=== PATIENT | male | born 1940 | race Caucasian/White ===

== ENCOUNTER 2019-01-15 10:19 | Observation (INO) | payer OTHER ==
[~2019-01-15] VITALS: Ht 154.9 cm; Wt 63.7 kg
[~2019-01-15 10:19] MED LIST: AMLO-147 PO; ESOM40CA PO; GABA300C16 PO; GLIM4TAB PO; KETO15CR TOP; LORA-444 PO; METF500T24 PO; VALA1000 PO; VALS320T2 PO; ZOLP10TA5 PO; [UNRECOGNIZED DRUG - CODE] IM
[2019-01-15] MEDS ORDERED: SOD CHLORIDE 0.9% 500 ML IV STA (10:32)
[2019-01-15] MEDS ORDERED: MELO7.5T38 PO (12:28)
[2019-01-15] MEDS ORDERED: SODI1TAB2 PO (12:28)
[2019-01-15] MEDS ORDERED: CARV12.598 PO (12:28)
[2019-01-15] MEDS ORDERED: METF-480 PO (12:28)
[2019-01-15] MEDS ORDERED: ZOLP12.54 PO (12:28)
--- NOTE | 2019-01-15 13:46 | ERD ---
ER Documentation Chief Complaint Chief Complaint DIZZINESS AND GEN WEAKNESS AND LOW NA PER PT. NAUSEA FOR 4 DAYS. HPI 78-year-old male presents to the emergency department complaining of generalized weakness and dizziness. Patient states for the last 4 days has had a generalized sense of weakness and inability to care for himself. His , and arrived in the emergency department with him also states he has been too weak to take care of himself. He has been nauseous for the last 4 days and reports urinary frequency. He is concerned that because he has been urinating so much that his sodium level is dropping. He reports no focal weakness or numbness. He reports no headache. He reports no fevers or chills. ROS All systems reviewed and are negative except as per history of present illness. Medications Home Meds Reported Medications Meloxicam* (Meloxicam*) 7.5 Mg Tablet, 7.5 MG PO BID, #30 TAB 01/15/19 Sodium Chloride* (Sodium Chloride*) 1 Gm Tablet, 1 GM PO DAILY, TAB 01/15/19 Carvedilol* (Coreg*) 12.5 Mg Tablet, 12.5 MG PO BID, #60 TAB 01/15/19 Zolpidem Tartrate* (Zolpidem Tartrate* ER) 12.5 Mg Tab.mphase, 12.5 MG PO HS PRN for INSOMNIA, #30 TAB.SA 01/15/19 Metformin* (Glucophage*) 850 Mg Tablet, 850 MG PO WITH BREAKFAST DINNE, #30 TAB 01/15/19 Lorazepam* (Ativan*) 2 Mg Tablet, 2 MG PO Q8 PRN for ANXIETY, TAB 02/04/15 Gabapentin* (Gabapentin*) 300 Mg Capsule, 300 MG PO BID, CAP 04/13/14 Esomeprazole Mag Trihydrate (Nexium) 40 Mg Capsule.dr, 40 MG PO BID, CAP 04/13/14 Amlodipine Besylate* (Amlodipine Besylate*) 10 Mg Tablet, 10 MG PO DAILY 11/18/13 Discontinued Reported Medications Ketoconazole* (Ketoconazole*) 60 Gm Cream.gm., 1 APPLIC TOP BID, EA 02/04/15 Metformin Hcl* (Metformin Hcl*) 500 Mg Tablet, 500 MG PO BID WITH MEALS, TAB 02/04/15 Valacyclovir Hcl* (Valacyclovir Hcl*) 1,000 Mg Tablet, 1000 MG PO BID, TAB 02/04/15 Zolpidem Tartrate* (Zolpidem Tartrate*) 10 Mg Tablet, 10 MG PO HS PRN for INSOMNIA, TAB 07/24/14 Glimepiride* (Glimepiride*) 4 Mg Tablet, 4 MG PO BID WITH MEALS, TAB 07/24/14 Testosterone Cypionate* (Testosterone Cypionate*) 200 Mg/Ml Vial, 200 MG IM Q14D, VIAL 07/24/14 Valsartan* (Diovan*) 320 Mg Tablet, 320 MG PO DAILY 11/18/13 Allergies Allergies: Coded Allergies: No Known Allergy (Verified , 01/15/19) PMhx/Soc History of Surgery: Yes (hernia) Anesthesia Reaction: No Hx Neurological Disorder: No Hx Respiratory Disorders: No Hx Cardiac Disorders: Yes (HTN) Hx Psychiatric Problems: No Hx Miscellaneous Medical Probl: Yes (DM, GALSTONES ) Hx Alcohol Use: No Hx Substance Use: No Hx Tobacco Use: No Smoking Status: Never smoker FmHx Noncontributory for chief complaint Physical Exam Vitals Vital Signs Date Temp Pulse Resp B/P (MAP) Pulse Ox O2 O2 Flow FiO2 Time Delivery Rate 01/15/19 98.4 61 20 137/65 98 Room Air 12:09 (89) 01/15/19 59 16 133/69 97 Room Air 11:55 (90) 01/15/19 98.4 72 18 166/79 99 10:24 (108) Physical Exam GENERAL: Frail, elderly, weak appearing male in no acute distress HEENT: Pupils equal, round, and reactive to light. EOMI. There is no scleral icterus. NECK: C-spine is soft and supple, there is no meningismus. There is no cervical lymphadenopathy. LUNGS: Clear to auscultation bilaterally. There are no rales, wheezes or rhonchi. HEART: Regular rate and rhythm, no murmurs, clicks, rubs or gallops. ABDOMEN: Soft, non-tender, non-distended. There are bowel sounds in all four quadrants. No rebound or guarding. EXTREMITIES: There is no peripheral cyanosis or edema. No focal swelling or erythema. NEURO: The patient moves all four extremities with 5/5 strength. Cranial nerves II - XII are intact. Unsteady gait. Alert and oriented with generalized weakness noted SKIN: There is no apparent rash or petechiae. HEME/LYMPHATIC: There is no evidence of excessive bruising or lymphedema. PSYCHIATRIC: The patient does not appear anxious or depressed. Result Diagram: 01/15/19 1041 01/15/19 1041 Results 24 hrs Laboratory Tests Test 01/15/19 10:41 01/15/19 11:30 White Blood Count 7.0 10^3/ul Red Blood Count 4.17 10^6/ul Hemoglobin 12.4 g/dl Hematocrit 35.9 % Mean Corpuscular Volume 86.1 fl Mean Corpuscular Hemoglobin 29.7 pg Mean Corpuscular Hemoglobin Concent 34.5 g/dl Red Cell Distribution Width 13.2 % Platelet Count 160 10^3/UL Mean Platelet Volume 9.6 fl Immature Granulocytes % 0.900 % Neutrophils % 65.1 % Lymphocytes % 19.9 % Monocytes % 12.2 % Eosinophils % 1.2 % Basophils % 0.7 % Nucleated Red Blood Cells % 0.0 /100WBC Immature Granulocytes # 0.060 10^3/ul Neutrophils # 4.5 10^3/ul Lymphocytes # 1.4 10^3/ul Monocytes # 0.9 10^3/ul Eosinophils # 0.1 10^3/ul Basophils # 0.1 10^3/ul Nucleated Red Blood Cells # 0.0 10^3/ul Sodium Level 132 mmol/L Potassium Level 4.1 mmol/L Chloride Level 95 mmol/L Carbon Dioxide Level 24 mmol/L Anion Gap 13 Blood Urea Nitrogen 18 mg/dl Creatinine 0.78 mg/dl Est Glomerular Filtrat Rate mL/min mL/min Glucose Level 237 mg/dl Calcium Level 9.2 mg/dl Total Bilirubin 0.4 mg/dl Direct Bilirubin 0.00 mg/dl Indirect Bilirubin 0.4 mg/dl Aspartate Amino Transf (AST/SGOT) 21 IU/L Alanine Aminotransferase (ALT/SGPT) 24 IU/L Alkaline Phosphatase 105 IU/L Total Protein 7.5 g/dl Albumin 4.3 g/dl Globulin 3.20 g/dl Albumin/Globulin Ratio 1.34 Lipase 120 U/L Urine Color YELLOW Urine Clarity CLEAR Urine pH 6.0 Urine Specific [place] 1.024 Urine Ketones NEGATIVE mg/dL Urine Nitrite NEGATIVE mg/dL Urine Bilirubin NEGATIVE mg/dL Urine Urobilinogen NEGATIVE mg/dL Urine Leukocyte Esterase NEGATIVE Sammy/ul Urine Hemoglobin NEGATIVE mg/dL Urine Glucose 1+ mg/dL Urine Total Protein NEGATIVE mg/dl Current Medications Medications Dose Sig/Dameon Start Time Status Last (Trade) Ordered Route PRN Stop Time Admin Dose Reason Admin Sodium 500 ml @ Q1H STAT 01/15/19 DC 01/15/19 Chloride 500 mls/hr IV 10:32 01/15/19 11:10 11:31 Procedures/MDM Patient was taken to a room, seen and evaluated. Comfort measures were initiated. Diagnostic tests were ordered and reviewed. 3 LEAD RHYTHM STRIP: Normal sinus rhythm without ectopy EK lead EKG reviewed by myself: Normal Sinus Rhythm Left axis deviation Nonspecific ST and T wave changes without ST elevation Impression: Nonspecific EKG RADIOLOGY: Reviewed with the radiologist CONSULTATION: Hospitalist was notified for admission REEVALUATION: 1345: Diagnostic tests were appreciated and discussed with the patient and arrangements were made for admission to the hospital. MEDICAL DECISION MAKIN-year-old male presents with a generalized weakness of uncertain etiology. Differential diagnosis entertained was broad and potential high acuity but focused on concerns regarding possible infection, electrolyte concerns. At this time, patient does not show evidence of significant infection including no evidence of urinary tract infection or pneum onia. His lab work is otherwise unremarkable except for a mild hyponatremia. I am more concerned about his medication list as he has multiple high risk medications that I believe are likely causing the weakness. As the patient is unable to care for himself at this time, he will be admitted to the hospital for further observation and monitoring. Departure Diagnosis: Primary Impression: Weakness Additional Impression: Adverse drug reaction Condition: CRUZ Iniguez Jan 15, 2019 13:46
[2019-01-15] MEDS ORDERED: ONDANSETRON 4 MG INJ IV PRN (14:00)
[2019-01-15] MEDS ORDERED: ACETAMINOPHEN 325 MG TAB PO PRN ×2 (14:00→16:00)
[2019-01-15 15:37] VITALS: BP 186/80; PULSE 70; RESP 18
[2019-01-15 15:51] VITALS: Ht 154.9 cm; Wt 63.7 kg
[2019-01-15 16:00] VITALS: PULSE 74
[2019-01-15] MEDS ORDERED: GLUCOSE GEL 15 GRAM TUBE BUCCAL PRN (16:00)
[2019-01-15] MEDS ORDERED: MAGNESIUM HYDROXIDE 30ML CUP PO PRN (16:00)
[2019-01-15] MEDS ORDERED: DEXTROSE 50% 50 ML SYRINGE IV PRN ×2 (16:00)
[2019-01-15] MEDS ORDERED: GLUCOSE GEL 15 GRAM TUBE PO PRN ×2 (16:00)
[2019-01-15] MEDS ORDERED: GLUCAGON 1 MG INJ IM PRN (16:00)
[2019-01-15] MEDS ORDERED: ACETAMINOPHEN 650 MG SUPP PR PRN (16:00)
[2019-01-15] MEDS ORDERED: NACL 0.9% 3 ML SYG IV SCH (16:00)
--- NOTE | 2019-01-15 16:04 | HP ---
Date/Time of Note Date/Time of Note DATE: 01/15/19 TIME: 15:53 Assessment/Plan VTE Prophylaxis SCD contraindicated: low risk/ambulating Pharmacological prophylaxis: heparin Lines/Catheters IV Catheter Type (from Nrs): Saline Lock Assessment/Plan Hospital Course assessment and plan 1. Dysuria and urinary frequency. Urinalysis not very suggestive of UTI. Will check urine culture. Hold off abx for now. 2. Reported increased dizziness and weakness. Etiology unknown. Patient reportedly takes Ambien and Ativan at home. Will hold off these medications for now. We will get physical therapist evaluation. 3. Hypertension. Will cover with antihypertensives. Will adjust as needed. 4. Diabetes. Follow-up on A1c. Start insulin regimen. 5. History of gastritis. Continue on Protonix. 6. History of anxiety. Hold off benzodiazepines for now for reported weakness and dizziness. Will monitor. Discussed plan of care with Dr. Lemon Result Diagram: 01/15/19 1041 01/15/19 1041 Results 24hrs Laboratory Tests Test 01/15/19 10:41 01/15/19 11:30 01/15/19 14:54 White Blood Count 7.0 Red Blood Count 4.17 #L Hemoglobin 12.4 L Hematocrit 35.9 #L Mean Corpuscular Volume 86.1 Mean Corpuscular Hemoglobin 29.7 Mean Corpuscular Hemoglobin Concent 34.5 Red Cell Distribution Width 13.2 # Platelet Count 160 Mean Platelet Volume 9.6 Immature Granulocytes % 0.900 H Neutrophils % 65.1 Lymphocytes % 19.9 Monocytes % 12.2 H Eosinophils % 1.2 Basophils % 0.7 Nucleated Red Blood Cells % 0.0 Immature Granulocytes # 0.060 H Neutrophils # 4.5 Lymphocytes # 1.4 Monocytes # 0.9 Eosinophils # 0.1 Basophils # 0.1 Nucleated Red Blood Cells # 0.0 Sodium Level 132 L Potassium Level 4.1 Chloride Level 95 L Carbon Dioxide Level 24 Anion Gap 13 Blood Urea Nitrogen 18 Creatinine 0.78 Est Glomerular Filtrat Rate mL/min Glucose Level 237 H Hemoglobin A1c 6.1 H Calcium Level 9.2 Total Bilirubin 0.4 Direct Bilirubin 0.00 Indirect Bilirubin 0.4 Aspartate Amino Transf (AST/SGOT) 21 Alanine Aminotransferase (ALT/SGPT) 24 Alkaline Phosphatase 105 Total Protein 7.5 Albumin 4.3 Globulin 3.20 Albumin/Globulin Ratio 1.34 Lipase 120 Urine Color YELLOW Urine Clarity CLEAR Urine pH 6.0 Urine Specific [place] 1.024 Urine Ketones NEGATIVE Urine Nitrite NEGATIVE Urine Bilirubin NEGATIVE Urine Urobilinogen NEGATIVE Urine Leukocyte Esterase NEGATIVE Urine Hemoglobin NEGATIVE Urine Glucose 1+ H Urine Total Protein NEGATIVE Bedside Glucose 127 HPI/ROS Admit Date/Time Admit Date/Time Jan 15, 2019 at 13:50 Hx of Present Illness This is a 78-year-old male with history of hypertension, diabetes, gastritis, anxiety, hernia repair, who came to [facility] due to reports of increased urinary frequency. During the interview patient reported that he had been having increased urinary frequency with subjective fevers at home as well as burning with urination. He reports having some dizziness with it. He did come to the hospital due to the aformentiond issues. No leukocytosis noted. No fever noted. Did have a high blood pressure during interview seen as high as 186/80. Urinalysis was also not clearly suggestive of urinary tract infection. Chest x-ray was also negative for any acute cardiopulmonary process. Patient denies any chest pain. He reports having increased frequency with urination. He does report some weakness. We will evaluate him for the aformentiond issues. ROS 12 point review of systems obtained entirely negative except that mentioned in the history of present illness PMH/Family/Social Past Medical History Medical/surgical history 1. Anxiety 2. Gastritis 3. diabetes 4. Hypertension 5. Hernia repair 6. reported testicular surgery (patient unable to provide details on type/reason for surgery) Medications Current Medications Amlodipine Besylate (Norvasc) 10 mg DAILY PO ; Start 01/16/19 at 09:00 Carvedilol (Coreg) 12.5 mg BID PO ; Start 01/15/19 at 21:00 Gabapentin (Neurontin) 300 mg BID PO ; Start 01/15/19 at 21:00 Meloxicam (Mobic) 7.5 mg BID PO ; Start 01/15/19 at 21:00 Sodium Chloride (Nacl) 1 gm DAILY PO ; Start 01/16/19 at 09:00 Miscellaneous Information (* Miscellaneous Pharmacy Order) Discontinue current oral sulfonylur... ONCE ONCE XX ; Start 01/15/19 at 16:00; Stop 01/15/19 at 16:01 Diagnostic Test (Pha) (Accu-Chek) 1 ea 02 XX ; Start 01/16/19 at 02:00 Miscellaneous Information (* Miscellaneous Pharmacy Order) HYPOGLYCEMIA PROTOCOL w... ONCE ONCE XX ; Start 01/15/19 at 16:00; Stop 01/15/19 at 16:01 Insulin Aspart (Novolog Insulin Pen) NOVOLOG *MILD* ALGORITHM WITH MEALS BEDTIME SC ; Start 01/15/19 at 18:00 Miscellaneous Information (* Miscellaneous Pharmacy Order) Discontinue all previ... ONCE ONCE XX ; Start 01/15/19 at 16:00; Stop 01/15/19 at 16:01 Insulin Glargine (Lantus) 11 units DAILY@2000 SC ; Start 01/15/19 at 20:00 Pantoprazole (Protonix Tab) 40 mg DAILY@06 PO ; Start 01/16/19 at 06:00 IV Flush (NS 3 ml) 3 ml PER PROTOCOL IV ; Start 01/15/19 at 16:00 Ondansetron HCl (Zofran Inj) 4 mg Q6H PRN IV NAUSEA/VOMITING; Start 01/15/19 at 16:00 Acetaminophen (Tylenol Tab) 650 mg Q6H PRN PO .PAIN 1-3 OR TEMP; Start 01/15/19 at 16:00 Acetaminophen (Tylenol Supp) 650 mg Q6H PRN [place] .PAIN 1-3 OR TEMP; Start 01/15/19 at 16:00 Magnesium Hydroxide (Milk Of Mag) 30 ml DAILY PRN PO .CONSTIPATION; Start 01/15/19 at 16:00 Miscellaneous Information 1 ea NOTE XX ; Start 01/15/19 at 16:00 Glucose (Glutose) 15 gm Q15M PRN PO DECREASED GLUCOSE; Start 01/15/19 at 16:00 Glucose (Glutose) 22.5 gm Q15M PRN PO DECREASED GLUCOSE; Start 01/15/19 at 16:00 Dextrose (D50w Syringe) 25 ml Q15M PRN IV DECREASED GLUCOSE; Start 01/15/19 at 16:00 Dextrose (D50w Syringe) 50 ml Q15M PRN IV DECREASED GLUCOSE; Start 01/15/19 at 16:00 Glucagon (Glucagen) 1 mg Q15M PRN IM DECREASED GLUCOSE; Start 01/15/19 at 16:00 Glucose (Glutose) 15 gm Q15M PRN BUCCAL DECREASED GLUCOSE; Start 01/15/19 at 16:00 Coded Allergies: No Known Allergy (Verified , 01/15/19) Family History Significant Family History: no pertinent family hx Social History Alcohol Use: none Smoking Status: Never smoker Drug Use: none Exam/Review of Systems Vital Signs Vitals Vital Signs Date Temp Pulse Resp B/P (MAP) Pulse Ox O2 O2 Flow FiO2 Time Delivery Rate 01/15/19 98.0 70 18 186/80 98 Room Air 15:37 (115) Exam Constitutional: alert, oriented Psych: no complaints Head: normocephalic Neck: supple, non-tender Respiratory: clear to auscultation Cardiovascular: regular rate and rhythm Gastrointestinal: soft, non-tender Neurological: SOFTBALL UMPIRE II-XII intact, nl mental status, nl speech REGIDORANTONIO NP Jan 15, 2019 16:03
[2019-01-15 16:29] VITALS: BP 172/79; PULSE 68
[2019-01-15 16:32] VITALS: BP 158/70; PULSE 73
[2019-01-15 16:34] VITALS: BP 131/60; PULSE 71
[2019-01-15] MEDS: ONDANSETRON 4 MG INJ IV PRN (16:51)
[2019-01-15] MEDS: INSULIN ASPART [NOVOLOG] 3 ML PEN SC SCH ×2 (17:19→20:41)
[2019-01-15 20:00] VITALS: BP 148/66; PULSE 59; PULSE 61; RESP 18
[2019-01-15] MEDS: GABAPENTIN 300 MG CAP PO SCH (20:39)
[2019-01-15] MEDS: INSULIN GLARGINE [LANTus] (100 UNITS/ML) SYG SC SCH (20:42)
[2019-01-15] MEDS: MELOXICAM 7.5 MG TAB PO SCH (20:45)
[2019-01-15] MEDS ORDERED: NON-FORMULARY/PATIENT OWN MED (Esomeprazole Mag Trihydrate (Nexium) 40 MG) PO SCH (21:00)
[2019-01-16] VITALS (12 sets, daily range): BP systolic 99–185; BP diastolic 54–84; PULSE 61–88; RESP 18–19
[2019-01-16] MEDS: ACCU-CHEK XX SCH (02:00)
[2019-01-16] MEDS: PANTOPRAZOLE (EC) 40 MG TAB PO SCH (05:02)
[2019-01-16] MEDS: hydrALAzine 20 MG INJ IV PRN ×2 (05:03→10:19)
[2019-01-16] MEDS: ONDANSETRON 4 MG INJ IV PRN (07:48)
[2019-01-16] MEDS: INSULIN ASPART [NOVOLOG] 3 ML PEN SC SCH ×4 (07:52→20:47)
[2019-01-16] MEDS: AMLODIPINE 10 MG TAB PO SCH (08:23)
[2019-01-16] MEDS: GABAPENTIN 300 MG CAP PO SCH ×2 (08:23→20:43)
[2019-01-16] MEDS: MELOXICAM 7.5 MG TAB PO SCH ×2 (08:23→20:39)
[2019-01-16] MEDS: SODIUM CHLORIDE 1 GM TAB PO SCH (08:24)
[2019-01-16] MEDS ORDERED: LORAZEPAM 2 MG INJ IV ONE (12:30)
[2019-01-16] MEDS ORDERED: LOSARTAN 25 MG TAB PO SCH (13:00)
--- NOTE | 2019-01-16 13:16 | PN ---
Date/Time of Note Date/Time of Note DATE: 01/16/19 TIME: 13:06 Assessment/Plan VTE Prophylaxis Risk score (from Ns)>0 risk: 3 SCD applied (from Ns): Yes Pharmacological prophylaxis: heparin Lines/Catheters IV Catheter Type (from Nrs): Saline Lock Urinary Cath still in place: No Assessment/Plan Hospital Course assessment and plan 1. Dysuria and urinary frequency. Urinalysis not very suggestive of UTI. - Will check urine culture. - Hold off abx for now. 2. Reported increased dizziness and weakness. - Etiology unknown. Patient reportedly takes Ambien and Ativan at home. - Will hold off these medications for now. - Awaiting physical therapist evaluation. 3. Hypertension. - continue antihypertensives 4. Diabetes. - continue insulin regimen. 5. History of gastritis. - Continue on Protonix. 6. History of anxiety. DISPO/PLAN: Await PT eval. reports testicular pain. We will follow-up on ultrasound. DC within the next 24 to 48 hours pending clinical course and if medically stable Discussed plan of care with Dr. Lemon Result Diagram: 01/16/19 0544 01/16/19 0544 Results 24hrs Laboratory Tests Test 01/15/19 14:54 01/15/19 17:18 01/15/19 20:36 01/16/19 05:44 Bedside Glucose 127 131 167 White Blood Count 7.7 Red Blood Count 4.38 L Hemoglobin 13.0 L Hematocrit 37.5 L Mean Corpuscular Volume 85.6 Mean Corpuscular 29.7 Hemoglobin Mean Corpuscular 34.7 Hemoglobin Concent Red Cell Distribution 13.0 Width Platelet Count 160 Mean Platelet Volume 9.5 Immature Granulocytes % 1.000 H Neutrophils % 62.0 Lymphocytes % 23.7 Monocytes % 10.2 Eosinophils % 2.3 Basophils % 0.8 Nucleated Red Blood 0.0 Cells % Immature Granulocytes # 0.080 H Neutrophils # 4.8 Lymphocytes # 1.8 Monocytes # 0.8 Eosinophils # 0.2 Basophils # 0.1 Nucleated Red Blood 0.0 Cells # Sodium Level 131 L Potassium Level 3.8 Chloride Level 94 L Carbon Dioxide Level 27 Anion Gap 10 Blood Urea Nitrogen 15 Creatinine 0.71 Est Glomerular Filtrat Rate mL/min Glucose Level 152 Calcium Level 9.6 Phosphorus Level 4.7 Magnesium Level 1.7 Total Bilirubin 0.5 Direct Bilirubin 0.00 Indirect Bilirubin 0.5 Aspartate Amino 19 Transf (AST/SGOT) Alanine 26 Aminotransferase (ALT/SG PT) Alkaline Phosphatase 103 Total Protein 7.3 Albumin 4.2 Globulin 3.10 Albumin/Globulin Ratio 1.35 Triglycerides Level 245 H Cholesterol Level 156 LDL Cholesterol, 72 Calculated HDL Cholesterol 35 Cholesterol/HDL Ratio 4.4 Thyroid Stimulating 2.870 Hormone (TSH) Free Thyroxine Index 2.82 Thyroxine (T4) 7.1 Triiodothyronine (T3) 39.7 Uptake Test 01/16/19 07:45 01/16/19 11:49 Bedside Glucose 170 193 Subjective 24 Hr Interval Summary Free Text/Dictation no s/s of distress. family at bedside Exam/Review of Systems Exam Vitals Vital Signs Date Temp Pulse Resp B/P (MAP) Pulse Ox O2 O2 Flow FiO2 Time Delivery Rate 01/16/19 88 12:02 01/16/19 98.4 18 172/78 96 11:29 (109) 01/16/19 Room Air 06:00 Intake and Output 01/15/19 01/15/19 01/16/19 1515:00 23:00 07:00 IntakeIntake Total 240 ml 600 ml OutputOutput Total 480 ml 800 ml BalanceBalance -240 ml -200 ml Exam Constitutional: alert, oriented Psych: no complaints Head: normocephalic Neck: supple, non-tender Respiratory: clear to auscultation Cardiovascular: regular rate and rhythm Gastrointestinal: soft, non-tender Neurological: BRICKLAYER APPRENTICE II-XII intact, nl mental status, nl speech Results Results 24hrs Laboratory Tests Test 01/15/19 14:54 01/15/19 17:18 01/15/19 20:36 01/16/19 05:44 Bedside Glucose 127 131 167 White Blood Count 7.7 Red Blood Count 4.38 L Hemoglobin 13.0 L Hematocrit 37.5 L Mean Corpuscular Volume 85.6 Mean Corpuscular 29.7 Hemoglobin Mean Corpuscular 34.7 Hemoglobin Concent Red Cell Distribution 13.0 Width Platelet Count 160 Mean Platelet Volume 9.5 Immature Granulocytes % 1.000 H Neutrophils % 62.0 Lymphocytes % 23.7 Monocytes % 10.2 Eosinophils % 2.3 Basophils % 0.8 Nucleated Red Blood 0.0 Cells % Immature Granulocytes # 0.080 H Neutrophils # 4.8 Lymphocytes # 1.8 Monocytes # 0.8 Eosinophils # 0.2 Basophils # 0.1 Nucleated Red Blood 0.0 Cells # Sodium Level 131 L Potassium Level 3.8 Chloride Level 94 L Carbon Dioxide Level 27 Anion Gap 10 Blood Urea Nitrogen 15 Creatinine 0.71 Est Glomerular Filtrat Rate mL/min Glucose Level 152 Calcium Level 9.6 Phosphorus Level 4.7 Magnesium Level 1.7 Total Bilirubin 0.5 Direct Bilirubin 0.00 Indirect Bilirubin 0.5 Aspartate Amino 19 Transf (AST/SGOT) Alanine 26 Aminotransferase (ALT/SG PT) Alkaline Phosphatase 103 Total Protein 7.3 Albumin 4.2 Globulin 3.10 Albumin/Globulin Ratio 1.35 Triglycerides Level 245 H Cholesterol Level 156 LDL Cholesterol, 72 Calculated HDL Cholesterol 35 Cholesterol/HDL Ratio 4.4 Thyroid Stimulating 2.870 Hormone (TSH) Free Thyroxine Index 2.82 Thyroxine (T4) 7.1 Triiodothyronine (T3) 39.7 Uptake Test 01/16/19 07:45 01/16/19 11:49 Bedside Glucose 170 193 Medications Medication Current Medications Amlodipine Besylate (Norvasc) 10 mg DAILY PO Last administered on 01/16/19 08:23; Admin Dose 10 MG; Start 01/16/19 at 09:00 Carvedilol (Coreg) 12.5 mg BID PO Last administered on 01/16/19 08:23; Admin Dose 12.5 MG; Start 01/15/19 at 21:00 Gabapentin (Neurontin) 300 mg BID PO Last administered on 01/16/19 08:23; Admin Dose 300 MG; Start 01/15/19 at 21:00 Meloxicam (Mobic) 7.5 mg BID PO Last administered on 01/16/19 08:23; Admin Dose 7.5 MG; Start 01/15/19 at 21:00 Sodium Chloride (Nacl) 1 gm DAILY PO Last administered on 01/16/19 08:24; Admin Dose 1 GM; Start 01/16/19 at 09:00 Diagnostic Test (Pha) (Accu-Chek) 1 ea 02 XX ; Start 01/16/19 at 02:00 Insulin Aspart (Novolog Insulin Pen) NOVOLOG *MILD* ALGORITHM WITH MEALS BEDTIME SC Last administered on 01/16/19at 11:52; Admin Dose 2 UNIT; Start 01/15/19 at 18:00 Insulin Glargine (Lantus) 11 units DAILY@1999 SC Last administered on 01/15/19at 20:42; Admin Dose 11 UNITS; Start 01/15/19 at 20:00 Pantoprazole (Protonix Tab) 40 mg DAILY@06 PO Last administered on 01/16/19at 05:02; Admin Dose 40 MG; Start 01/16/19 at 06:00 IV Flush (NS 3 ml) 3 ml PER PROTOCOL IV ; Start 01/15/19 at 16:00 Ondansetron HCl (Zofran Inj) 4 mg Q6H PRN IV NAUSEA/VOMITING Last administered on 01/16/19at 07:48; Admin Dose 4 MG; Start 01/15/19 at 16:00 Acetaminophen (Tylenol Tab) 650 mg Q6H PRN PO .PAIN 1-3 OR TEMP; Start 01/15/19 at 16:00 Acetaminophen (Tylenol Supp) 650 mg Q6H PRN [place] .PAIN 1-3 OR TEMP; Start 01/15/19 at 16:00 Magnesium Hydroxide (Milk Of Mag) 30 ml DAILY PRN PO .CONSTIPATION; Start 01/15/19 at 16:00 Miscellaneous Information 1 ea NOTE XX ; Start 01/15/19 at 16:00 Glucose (Glutose) 15 gm Q15M PRN PO DECREASED GLUCOSE; Start 01/15/19 at 16:00 Glucose (Glutose) 22.5 gm Q15M PRN PO DECREASED GLUCOSE; Start 01/15/19 at 16:00 Dextrose (D50w Syringe) 25 ml Q15M PRN IV DECREASED GLUCOSE; Start 01/15/19 at 16:00 Dextrose (D50w Syringe) 50 ml Q15M PRN IV DECREASED GLUCOSE; Start 01/15/19 at 16:00 Glucagon (Glucagen) 1 mg Q15M PRN IM DECREASED GLUCOSE; Start 01/15/19 at 16:00 Glucose (Glutose) 15 gm Q15M PRN BUCCAL DECREASED GLUCOSE; Start 01/15/19 at 16:00 Hydralazine HCl (Apresoline) 10 mg Q4H PRN IV high blood pressure Last administered on 01/16/19at 10:19; Admin Dose 10 MG; Start 01/15/19 at 16:30 Losartan Potassium (Cozaar) 25 mg BID PO ; Start 01/16/19 at 13:00 ANTONIO BUTT NP Jan 16, 2019 13:16
[2019-01-16] MEDS: HEPARIN 5,000 UNIT/1 ML VIAL SC SCH (20:45)
[2019-01-16] MEDS: INSULIN GLARGINE [LANTus] (100 UNITS/ML) SYG SC SCH (20:46)
[2019-01-17] VITALS (12 sets, daily range): BP systolic 132–202; BP diastolic 64–91; PULSE 54–78; RESP 17–18
[2019-01-17] MEDS ORDERED: ZOLPIDEM 5 MG TAB PO ONE (02:00)
[2019-01-17] MEDS: ACCU-CHEK XX SCH (02:00)
[2019-01-17] MEDS: PANTOPRAZOLE (EC) 40 MG TAB PO SCH (05:35)
[2019-01-17] MEDS: INSULIN ASPART [NOVOLOG] 3 ML PEN SC SCH ×2 (08:10→11:51)
[2019-01-17] MEDS: SODIUM CHLORIDE 1 GM TAB PO SCH (08:11)
[2019-01-17] MEDS: MELOXICAM 7.5 MG TAB PO SCH (08:11)
[2019-01-17] MEDS: GABAPENTIN 300 MG CAP PO SCH (08:11)
[2019-01-17] MEDS: HEPARIN 5,000 UNIT/1 ML VIAL SC SCH (08:14)
[2019-01-17] MEDS: AMLODIPINE 10 MG TAB PO SCH (08:16)
--- NOTE | 2019-01-17 12:37 | PDOCDIS ---
Discharge Instructions DIAGNOSIS Discharge Diagnosis 1. Dysuria and urinary frequency. 2. Reported increased dizziness and weakness. 3. Hypertension. 4. Diabetes. 5. History of gastritis. 6. History of anxiety. CONDITION [id number] Patient Condition: [id number] Stable HOME CARE INSTRUCTIONS: [id number] Diet Instructions: [id number] Low Fat /Cholesterol FOLLOW UP/APPOINTMENTS Follow-up Plan 1. Follow up with your primary care provider in one week ANTONIO BUTT NP Jan 17, 2019 12:37
[2019-01-17] MEDS ORDERED: GABA300C16 PO (12:39)
[2019-01-17] MEDS ORDERED: MELO7.5T38 PO (12:39)
[2019-01-17] MEDS ORDERED: AMLO-147 PO (12:39)
[2019-01-17] MEDS ORDERED: CARV12.598 PO (12:39)
[2019-01-17] MEDS: ONDANSETRON 4 MG INJ IV PRN (15:52)
[2019-01-17] MEDS: hydrALAzine 20 MG INJ IV PRN (15:53)
--- NOTE | 2019-01-20 17:53 | DS ---
Date/Time of Note Date/Time of Note DATE: 01/20/19 TIME: 17:49 Discharge Summary Admission/Discharge Info Admit Date/Time Jan 15, 2019 at 13:50 Discharge Date/Time Jan 17, 2019 at 17:25 Discharge Diagnosis 1. Dysuria and urinary frequency. 2. Reported increased dizziness and weakness. 3. Hypertension. 4. Diabetes. 5. History of gastritis. 6. History of anxiety. Patient Condition: Stable Hx of Present Illness This is a 78-year-old male with history of hypertension, diabetes, gastritis, anxiety, hernia repair, who came to [facility] due to reports of increased urinary frequency. During the interview patient reported that he had been having increased urinary frequency with subjective fevers at home as well as burning with urination. He reports having some dizziness with it. He did come to the hospital due to the aformentiond issues. No leukocytosis noted. No fever noted. Did have a high blood pressure during interview seen as high as 186/80. Urinalysis was also not clearly suggestive of urinary tract infection. Chest x-ray was also negative for any acute cardiopulmonary process. Patient denies any chest pain. He reports having increased frequency with urination. He does report some weakness. We will evaluate him for the aformentiond issues. Hospital Course This is a 78-year-old male with history of hypertension, diabetes, gastritis, anxiety, hernia repair, who came to [facility] due to reports of increased urinary frequency. During the interview patient reported that he had been having increased urinary frequency with subjective fevers at home as well as burning with urination. He reports having some dizziness with it. He did come to the hospital due to the aformentiond issues. No leukocytosis noted. No fever noted. Did have a high blood pressure during interview seen as high as 186/80. Urinalysis was also not clearly suggestive of urinary tract infection. Chest x-ray was also negative for any acute cardiopulmonary process. Patient denied any chest pain. He reported having increased frequency with urination. He reported some weakness. Patient's urinalysis was not really consistent with UTI. Additionally urine culture was also negative. For his reported increased dizziness and weakness was noted that patient was taking Ambien and Ativan at home and likely this may have been the cause of his increased dizziness and weakness. We did withhold these medications and we got a physical therapist evaluation for the patient. He did report resolution of his dizziness and weakness after we did stop the medication. During his course of stay he did improve. He did report resolution of his urinary frequency. He denied any further pain. He was otherwise optimized medically with antihypertensives for high blood pressure and insulin for diabetes. He was resumed on his PPI for his history of gastritis. During his course of stay did improve. The plan of care was discussed with the patient and patient verbalizes understanding. On the day of discharge patient was in stable condition Discussed plan of care with Dr. Lemon [facility] Active Scripts Meloxicam* (Meloxicam*) 7.5 Mg Tablet, 7.5 MG PO BID, #30 TAB Prov:REGANTONIO MARTINEZ ORTHOTIST 01/17/19 Carvedilol* (Coreg*) 12.5 Mg Tablet, 12.5 MG PO BID, #60 TAB Prov:REGIDOANTONIO Lentz ORTHOTIST 01/17/19 Gabapentin* (Gabapentin*) 300 Mg Capsule, 300 MG PO BID, #60 CAP Prov:ANTONIO BUTT ORTHOTIST 01/17/19 Amlodipine Besylate* (Amlodipine Besylate*) 10 Mg Tablet, 10 MG PO DAILY, #30 TAB Prov:ANTONIO BUTT ORTHOTIST 01/17/19 Reported Medications Sodium Chloride* (Sodium Chloride*) 1 Gm Tablet, 1 GM PO DAILY, TAB 01/15/19 Metformin* (Glucophage*) 850 Mg Tablet, 850 MG PO WITH BREAKFAST DINNE, #30 TAB 01/15/19 Esomeprazole Mag Trihydrate (Nexium) 40 Mg Capsule.dr, 40 MG PO BID, CAP 04/13/14 Discontinued Reported Medications Zolpidem Tartrate* (Zolpidem Tartrate* ER) 12.5 Mg Tab.mphase, 12.5 MG PO HS PRN for INSOMNIA, #30 TAB.SA 01/15/19 Lorazepam* (Ativan*) 2 Mg Tablet, 2 MG PO Q8 PRN for ANXIETY, TAB 02/04/15 Ketoconazole* (Ketoconazole*) 60 Gm Cream.gm., 1 APPLIC TOP BID, EA 02/04/15 Metformin Hcl* (Metformin Hcl*) 500 Mg Tablet, 500 MG PO BID WITH MEALS, TAB 02/04/15 Valacyclovir Hcl* (Valacyclovir Hcl*) 1,000 Mg Tablet, 1000 MG PO BID, TAB 02/04/15 Zolpidem Tartrate* (Zolpidem Tartrate*) 10 Mg Tablet, 10 MG PO HS PRN for INSOMNIA, TAB 07/24/14 Glimepiride* (Glimepiride*) 4 Mg Tablet, 4 MG PO BID WITH MEALS, TAB 07/24/14 Testosterone Cypionate* (Testosterone Cypionate*) 200 Mg/Ml Vial, 200 MG IM Q14D, VIAL 07/24/14 Valsartan* (Diovan*) 320 Mg Tablet, 320 MG PO DAILY 11/18/13 Follow-up Plan 1. Follow up with your primary care provider in one week Primary Care Provider Samuel Bedolla Time spent on discharge: > 30 minutes ANTONIO BUTT NP Jan 20, 2019 17:53
== END 2019-01-17 17:25 | disposition home or self-care (01) ==
LOC: E/R 10:19 → 6WM 13:50 → INTOOBSV 13:50
PROVIDERS: ADMIT Internal Medicine; ATTEND Internal Medicine
DX: R30.0 Dysuria (principal); R35.0 Frequency of micturition; R42 Dizziness and giddiness; R53.1 Weakness; I10 Essential (primary) hypertension; E11.9 Type 2 diabetes mellitus without complications; K29.70 Gastritis, unspecified, without bleeding; F41.9 Anxiety disorder, unspecified
CPT/HCPCS: 36415; 71045; 80053; 80061; 81003; 82962; 83036; 83690; 83735; 84100; 84153; 84154; 84436; 84443; 84479; 85025; 87086; 93005; 97161; 99285; G0378; J0360; J1644; J1815; J2060; J2405; J7040